=== PATIENT | male | born 1995 | race Caucasian/White ===

== ENCOUNTER 2016-07-25 21:43 | Emergency (ER) | payer SELFPAY ==
--- NOTE | 2016-07-25 21:49 | EDPHY ---
H & P Time Seen by Provider: 07/25/16 21:47 HPI/ROS: CHIEF COMPLAINT: Right ankle injury HISTORY OF PRESENT ILLNESS: Patient was at this [facility] when he got from his board and sustained a right ankle injury. Brought in by EMS with right ankle pain which started just after the fall and is severe and worse with any movement or palpation. Radiates slightly up his leg toward his knee. Not associated with weakness or numbness in the foot but decreased motor strength. EMS obtained history of possible dislocation and relocation in the field , but the patient cannot confirm or deny that. REVIEW OF SYSTEMS: No skin laceration. No nausea or vomiting. Did not hit his head. No neck or back pain. No recent medical illnesses. A comprehensive 10 point review of systems is otherwise negative aside from elements mentioned in the history of present illness. PAST MEDICAL HISTORY: Seizures for which the patient smokes marijuana. Last seizure 6 months ago. Lyme disease. Social history: No alcohol tonight General Appearance: Alert and conversant, cooperative. Eyes: No scleral icterus. ENT, Mouth: Normal mucous membranes. Respiratory: Normal respiratory effort, breath sounds equal, lungs are clear to auscultation. Cardiovascular: Regular rate and rhythm. Gastrointestinal: Abdomen is soft and non tender. Neurological: Alert and oriented x3. Normally conversant. Skin: Skin intact over the right ankle injury. Musculoskeletal: Right ankle deformity and swelling. He has ability to move his toes and has sensation intact to light touch. Dorsalis pedis pulses present. Spiine and remainder of extremities nontender. Psychiatric: Not agitated. Emergency Department course/MDM: X-ray of the right tib-fib and right ankle. Injury is closed. 2203: X-rays reviewed on computer system. Shows spiral fibula fracture, posterior malleolus fracture, widening of the ankle mortise; personally interpreted by me. 2244: Patient's pain is better after 20 mg IV ketamine and 100 mcg IV fentanyl. Discussed with Dr. Maurer who reviewed the x-rays on the computer system. He recommends CT in the emergency department, crutches and splint, office follow- up in the next 1-2 days for probable ORIF. Warned patient followup mandatory, surgery likely needed for full treatment. Constitutional: Initial Vital Signs Temperature (C) 37.1 C 07/25/16 21:48 Heart Rate 79 07/25/16 21:48 Respiratory Rate 18 07/25/16 21:48 Blood Pressure 147/91 H 07/25/16 21:48 O2 Sat (%) 91 L 07/25/16 21:48 O2 Delivery Mode Room Air Allergies/Adverse Reactions: amoxicillin Allergy (Verified 07/25/16 21:50) Home Medications: Medication Instructions Recorded oxyCODONE/APAP 5/325 [Percocet] 1 - 2 tab PO Q4-6PRN PRN #13 tab 07/25/16 Medical Decision Making - Diagnostics Imaging Results: Imaging Impressions Ankle X-Ray 07/25/16 21:47 Impression: 1. Spiral distal fibular fracture with mild posterior displacement. 2. Minimally displaced posterior malleolar fracture. 3. Widening of the medial ankle mortise. Tibia/Fibula X-Ray 07/25/16 21:47 Impression: Spiral fracture of the distal fibula, better seen on the comparison ankle. Extremity CT 07/25/16 22:18 Impression: 1. Lateral malleolar fracture with 6 mm posterior displacement. 2. Minimally displaced minimally comminuted posterior malleolar fracture. 3. Widening of the medial ankle mortise. Findings discussed with Patrice Phillips 07/25/2016 at 2318. Procedures: Procedure: Splint placement. A long leg right posterior Ortho Glass splint was applied. After application of the splint I returned and re-examined the patient. The splint was adequately immobilizing the joint and distal to the splint the patient's circulation and sensation was intact. Differential Diagnosis: Differential considered including but not limited to Achilles injury, lateral malleolus fracture, trimalleolar fracture, ankle dislocation, plafond injury. Consult/Admit Bed Type: Maurer ortho 2218, CT and splint/crutches/office - Data Points Medications Given: Discontinued Medications Fentanyl (Sublimaze) 100 mcg IVP EDNOW ONE Stop: 07/25/16 22:09 Last Admin: 07/25/16 22:20 Dose: 100 mcg Ketamine HCl (Ketamine) 20 mg IVP EDNOW ONE Stop: 07/25/16 22:09 Last Admin: 07/25/16 22:20 Dose: 20 mg Oxycodone/Acetaminophen (Percocet 5/325mg Prepack#4) 1 btl TAKEHOME EDNOW ONE Stop: 07/25/16 22:47 Last Admin: 07/25/16 23:32 Dose: 1 btl Departure - Departure Disposition: Home, Routine, Self-Care Clinical Impression: Closed fracture of posterior malleolus, Fracture of distal end of right fibula Condition: Good Instructions: Oxycodone/Acetaminophen (By mouth), Leg Fracture (ED), Crutch Instructions (ED) Additional Instructions: Wear splint and no weight-bearing. Follow up with Dr. Maurer in the office this week it is possible that you may need surgery. Referrals: Francois Maurer MD [Medical Doctor] - 1-2 days without fail Prescriptions: oxyCODONE/APAP 5/325 [Percocet] 1 - 2 tab PO Q4-6PRN PRN #13 tab PRN Reason: Pain
[2016-07-25] MEDS ORDERED: fentaNYL 100 MCG/2 ML INJ IVP ONE (22:08)
[2016-07-25] MEDS ORDERED: KETAMINE 100 MG/10 ML SYR IVP ONE (22:08)
[2016-07-25] MEDS ORDERED: OXYCODONE/APAP 5/325MG PREPACK#4 BTL TAKEHOME ONE (22:46)
[2016-07-25 22:47] VITALS: PULSE 83; RESP 12
[2016-07-26] VITALS: BP 150/87; TEMP 98.1; O2SAT 92
== END 2016-07-25 23:59 | disposition home or self-care (01) ==
DX: S82.891A Other fracture of right lower leg, initial encounter for closed fracture (principal); S82.831A Other fracture of upper and lower end of right fibula, initial encounter for closed fracture; V00.131A Fall from skateboard, initial encounter; Y92.89 Other specified places as the place of occurrence of the external cause; Y99.8 Other external cause status
CPT/HCPCS: 96374; J3010